=== PATIENT | male | born 1980 | race Caucasian/White ===

== ENCOUNTER 2024-03-13 13:58 | Inpatient (IN) | payer BC, SELFPAY ==
[2024-03-13 08:02] VITALS: BP 169/99
[2024-03-13 08:58] VITALS: BMI 36.8
[2024-03-13] MEDS: NSS 1000 IV (09:19)
--- NOTE | 2024-03-13 09:23 | ED.GENMED ---
History of Present Illness
General
Chief Complaint: Male Genito-Urinary Symptoms
Source: patient
Exam Limitations: none
Time Seen by Provider: 03/13/24 08:55
Nursing documentation reviewed up to this point in time: agreed with
Travel History
Have you had any contact with someone who has COVID-19?: No
Do you have any symptoms of coronavirus? Fever > 100 degrees, chills, cough, shortness of breath, sore throat, loss of taste or smell, muscle aches, or headache?: No
History of Present Illness
History of Present Illness:
43-year-old male 8 days post v[address]ctomy by Dr. Archer has had increasing swelling and pain of the scrotum since. He states his temperature max was 100.12 days ago. He saw Dr. Archer 4 days ago and was told he had a hematoma. Symptoms worsened and
two days ago started on Levaquin 500 milligrams daily for 10 days. Denies n/v, denies abdominal pain, denies trouble urinating or moving bowels.
Past History
Past History
ED Past Medical History: None
ED Past Surgical History: Orthopedic, Tonsilectomy and Urological (vasectomy 03/05/24)
Social History
Tobacco: Non-smoker
Alcohol: Occasional
Personal:
Living: with family
Employment: Employed
Review of Systems
Review of Systems
Allergies reviewed?: Yes
All Other Systems: ROS reviewed and negative except as documented in HPI and ROS
Constitutional: Reports fever (Temp 101.o 2 d ago, none since)
ABD/GI: Denies abdominal pain, nausea or vomiting
: Reports other (swollen, tender scrotal area R > L); Denies dysuria, frequency, flank pain, difficulty voiding, urgency or bleeding
Phy Exam
Physical Exam
Physical Exam:
GENERAL: No acute distress. A&Ox3.
CONSTITUTIONAL: Afebrile.
RESPIRATORY: Regular respirations, nonlabored, lungs clear.
CARDIOVASCULAR: Regular rate and rhythm, no murmurs, no rubs.
GI: Soft, nontender, normal BS
: Swollen, tender scrotum R>L, palpable firm area R upper scrotum, brawny reddish area, not bright red
MUSCULOSKELETAL: Moves with ease. Well perfused.
SKIN: Warm, dry, pink
PSYCH: Normal mood and affect. Well kept, interactive and appropriate
NEUROLOGIC: Awake, alert and oriented. No focal neurological deficits
Course
Orders/Labs/Results
Orders:
Orders
03/13/24 Breakfast
Regular
At Your Request: Full Participation
03/13/24 09:12
CT Pelvis With Iv Contrast Urgent
Reason For Exam: scrotal swelling, pain, redness 8 d post vasectomy
03/13/24 09:13
0.9% Sodium Chloride 1000 ml [Nss] 1,000 ml IV BOLUS
03/13/24 09:18
Complete Blood Count/With Diff Urgent
Comprehensive Metabolic Panel Urgent
03/13/24 09:55
US Scrotum Urgent
Comment:
Reason For Exam: swelling, pain 8 days post vasectomy
03/13/24 11:49
Piperacillin/Tazo 3.375 Gram [Zosyn] 3.375 gram in 50 ml IV NOW
03/13/24 12:06
Ketorolac [Toradol] 15 mg IV NOW STA
03/13/24 12:15
Vancomycin [Vancocin] 2,000 mg 0.9% Sodium Chloride 500 ml [Nss] 500 ml IV NOW
03/13/24 13:07
UROLOGY CONSULT Routine
Consulting Provider: Michael Noland
Was physician already notified: Yes
03/13/24 13:24
Admit/Transfer Patient As Directed
Co-Sign Provider:
Level of Care: Inpatient admission
Assign to:: Telemetry
Physician / Group: dayanna
Diagnosis: cellulitis
Reason for Telemetry: Arrhythmia
Date to Stop Telemetry: 03/16/24
Time to Stop Telemetry: 11:00
Reason for Hospitalization: cellulitis
Expected length of stay greater than two midnights?: Yes
ELOS- Estimated Length of Stay in days: 3
I certify the patient meets the requirements for IP care: Yes
03/13/24 13:25
Code Status As Directed
Resuscitation Status: Full Code
03/13/24 13:32
Urinalysis Reflex To Culture Routine
03/13/24 15:06
Acetaminophen [Tylenol] 650 mg PO Q4HPRN PRN
Hydrocodone 5/APAP 325 [[place] 5/325] 1 tablet PO TIDPRN PRN
03/13/24 15:06
Activity As Directed
Activity Level: Out of Bed-Early Mobility
Intake/ Output As Directed
Frequency: Per unit guidelines
Pneumatic Compression Sleeves As Directed
Type: Thigh high
Vital Signs As Directed
Frequency: Per unit guidelines
DX Deep Vein Thrombosis Video Routine
03/13/24 15:49
Blood Culture Q30M
[facility] Source: Blood/Venous
Specimen Description:
03/13/24 15:52
Blood Culture Q30M
[facility] Source: Blood/Venous
Specimen Description:
03/13/24 18:00
Piperacillin/Tazo 3.375 Gram [Zosyn] 3.375 gram in 50 ml IV Q6H
03/14/24 06:00
Basic Metabolic Panel IN AM
Complete Blood Count/No Diff IN AM
03/15/24 06:00
Basic Metabolic Panel IN AM
Complete Blood Count/No Diff IN AM
03/16/24 06:00
Basic Metabolic Panel IN AM
Complete Blood Count/No Diff IN AM
03/16/24 11:00
DC Protocol for Telemetry ONCE
03/17/24 06:00
Basic Metabolic Panel IN AM
Complete Blood Count/No Diff IN AM
03/18/24 06:00
Basic Metabolic Panel IN AM
Complete Blood Count/No Diff IN AM
Abnormal Lab Results
03/13/24
09:18
WBC 11.0 H 10^3/uL
(4.8-10.8)
RBC 4.28 L 10^6/uL
(4.70-6.10)
Hct 37.8 L %
(39.0-52.0)
Absolute Neuts (auto) 8.1 H 10^3/uL
(1.4-6.5)
Absolute Monos (auto) 1.1 H 10^3/uL
(0.1-0.6)
Lymphocytes % 14.0 L %
(20.5-51.1)
Monocytes % 10.0 H %
(1.7-9.3)
Glucose 102 H mg/dl
(70-99)
ALT 51 H U/L
(0-50)
03/13/24 09:18
03/13/24 09:18
Vital Signs
Initial and Last Documented VS:
Initial Vital Signs
Temp Pulse Resp BP Pulse Ox
98.7 F 108 16 169/99 98
03/13/24 08:02 03/13/24 08:02 03/13/24 08:02 03/13/24 08:02 03/13/24 08:02
Last Documented Vital Signs
Temp Pulse Resp BP Pulse Ox
98.3 F 85 16 151/86 98
03/13/24 15:13 03/13/24 15:13 03/13/24 15:13 03/13/24 15:13 03/13/24 15:13
MDM/Problems Addressed
Differential Diagnosis Includes:
hematoma, abscess, cellulitis, Teagan's gangrene
MDM/Problems Addressed:
43-year-old male 8 days post vasectomy by Dr. Archer has had increasing swelling and pain of the scrotum since. He states his temperature max was 100.12 days ago. He saw Dr. Archer 4 days ago and was told he had a hematoma. Symptoms worsened and
two days ago started on Levaquin 500 milligrams daily for 10 days. Denies n/v, denies abdominal pain, denies trouble urinating or moving bowels.
Afebrile, NAD
No sign of gangrene
11:30 a.m.
CBC unremarkable
CMP normal
US scrotum: Radiology report read: IMPRESSION:
1. Diffuse scrotal wall edema may reflect cellulitis. No loculated fluid collections.
2. Complex fluid in the right inguinal canal likely reflects combination of blood products and inflammatory soft tissue thickening/vasitis, likely postoperative.
Consulted Urology Dr. Noland who requests admit to Hospitalist, he is willing to take on his service
Hospitalist notified of admission
*Critical Care Note
Total Time (30-74mins, 75-104mins- exclusive of procedures): Not Applicable
ED Attending Note
-
Portions of this chart may have been created with voice recognition software.� Occasional wrong word or��sound alike� substitutions may have occurred due to the inherent limitations of voice recognition software.
Discharge Plan
Departure
Patient Disposition: Admit
Date of Disposition: 03/13/24
Time of Disposition: 13:04
Admit to: Med/Surg
Presentation/result/management discussed w/ accepting MD/DO: Hospitalist
Condition: Fair
Discharge Problem:
Cellulitis of scrotum
Interventions
Interventions:
*Risk Screen - Suicide Last Done: 03/13/24 08:02
*General Assessment Last Done: 03/13/24 08:02
*Neglect/Abuse Screening Last Done: 03/13/24 08:02
ED- Fall Risk Assessment Last Done: 03/13/24 08:59
*ED COVID-19 Vaccine History Last Done: 03/13/24 08:58
*Nursing Disposition Last Done: 03/13/24 14:50
ED-Male Genitourinary Assessment Last Done: 03/13/24 08:59
Discharge Date and Time
Discharge Date/Time: 03/13/24 14:53
[2024-03-13 09:41] LABS: % Basophils 0.2 % (0-2); % Eosinophils 1.3 % (0-6); % Immature Granulocytes 0.4 % (0-0.5); % Neutrophils 74.1 % (42.2-75.2); Absolute Eosinophils 0.1 10^3/uL (0-0.7); Absolute Lymphocytes 1.5 10^3/uL (1.2-3.4); Absolute Monocytes 1.1 10^3/uL (0.1-0.6); Absolute Neutrophils 8.1 10^3/uL (1.4-6.5); Hematocrit 37.8 % (39.0-52.0); Mean Corp Hgb Conc. 34.4 g/dL (33.0-37.0); Mean Corpuscular Hgb 30.4 pg (27.0-31.0); Mean Corpuscular Volume 88.3 fL (80.0-94.0); Mean Platelet Volume 9.1 fL (7.4-10.4); Nucleated Red Blood Cells % 0 % (-); Platelet Count 258 10^3/uL (130-400); Red Blood Cell Count 4.28 10^6/uL (4.70-6.10); Red Cell Dist. Width 12.5 % (11.5-14.5)
[2024-03-13 09:48] LABS: ALT (SGPT) 51 U/L (0-50); AST (SGOT) 37 U/L (17-59); Alkaline Phosphatase 45 U/L (38-126); Blood Urea Nitrogen 13 mg/dl (9-20); Calcium 9.1 mg/dl (8.4-10.2); Carbon Dioxide 26 mmol/L (22-30); Chloride 106 mmol/L (98-107); Estimated Creatinine Clearance > 125 ml/min; Glucose 102 mg/dl (70-99); Potassium 4.3 mmol/L (3.5-5.1); Sodium 141 mmol/L (135-145); Total Bilirubin 0.7 mg/dl (0.2-1.3); eGFR > 60.00
[2024-03-13] MEDS: ZOSYN 50 IV ×3 (12:04→23:09)
[2024-03-13] MEDS: TORADOL 15 MG IV (12:11)
[2024-03-13] MEDS: VANCOCIN 540 MG IV (12:41)
--- NOTE | 2024-03-13 13:02 | HPS.HSE ---
Family Physician
-
Family Physician: Saeed Reynoso MD
Chief Complaint
-
Swollen, red scrotum
History of Present Illness
43-year-old male 8 days post vasectomy by Dr. Archer has had increasing swelling and pain of the scrotum since. Patient underwent mastectomy on last Friday. He was evaluated by urology on Friday, and he was told he has hematoma. he states his
temperature max was 100.1 on ., Patient was prescribed Levaquin 500 milligrams daily for 10 days on . Denies n/v, denies abdominal pain, denies trouble urinating or moving bowels. Patient denied headache, dizziness, syncopal
episode. Patient denied chest pain, short of breath.
Ultrasound and CT with cellulitis. Patient initiated on IV Vanco and Zosyn. Admitting for further management
Medical History
Past Medical History
Past Medical History: Reports None
Past Surgical History: Reports None
Additional Past Surgical History:
Tonsillectomy
Vasectomy
Social History
Tobacco: Vaping
Alcohol: Occasional
Drug: None
Living: With Family
Employment: Employed
Family History
Family History: Not pertinent
Allergies / Home Medications
Allergies reflects when Allergies were last updated in [facility].
Home Medications with original date entered in [facility]
Allergy/Medication List:
Allergies
Allergy/AdvReac Type Severity Reaction Status Date / Time
No Known Allergies Allergy Verified 03/13/24 08:01
Home Medications
hydrocodone 5 mg-acetaminophen 325 mg tablet 1 tab PO TIDPRN PRN severe pain 03/13/24
ibuprofen 200 mg tablet (Advil) 200 mg PO Q6HPRN PRN mild pain 03/13/24
levofloxacin 500 mg tablet 500 mg PO DAILY 03/13/24
Review of Systems
-
Constitutional: Reports No Symptoms
EENT: Reports No Symptoms
Respiratory: Reports No Symptoms
Cardiac: Reports No Symptoms
Abdomen/GI: Reports No Symptoms
: Reports No Symptoms
Musculoskeletal: Reports No Symptoms
Skin: Reports Other (Right, swollen scrotum)
Neurological: Reports No Symptoms
Endocrine: Reports No Symptoms
Hematologic/Lymphatic: Reports No Symptoms
Psych: Reports No Symptoms
Physical Exam
Vital Signs
Vital Signs
Temp Pulse Resp BP Pulse Ox
98.7 F 108 16 169/99 98
03/13/24 08:02 03/13/24 08:02 03/13/24 08:02 03/13/24 08:02 03/13/24 08:02
Physical Exam
General: Well Developed, Well Nourished and No Apparent Distress
HEENT: NormoCephalic, Moist mucous membranes and Atraumatic
Respiratory: Clear
Cardiac: S1/S2 and Regular Rhythm; No Murmur or Rub
GI: Soft, Non Tender, Non Distended and Normal Bowel Sounds; No Organomegaly
Rectal: Deferred by Provider
Genito-urinary: Other (Scrotum red swollen, blue.)
Musculoskeletal: No Clubbing, No Cyanosis and No Edema
Skin: No Rash
Neuro: Nonfocal/grossly intact
Laboratory Results
-
03/13/24 09:18
03/13/24 09:18
Laboratory Results
Total Bilirubin 0.7 mg/dl (0.2-1.3) 03/13/24 09:18
AST 37 U/L (17-59) 03/13/24 09:18
ALT 51 U/L (0-50) H 03/13/24 09:18
Alkaline Phosphatase 45 U/L (38-126) 03/13/24 09:18
Data Reviewed
-
Diagnostic Radiology: Report Reviewed by me
CT Scan: Report Reviewed by me
Lab Data: Labs Reviewed by me
Impression/Plan
-
# Sepsis cellulitis of scrotum s/p mastectomy
-Failed oral antibiotics
-WBC 11.0, tachycardia
-Scrotal ultrasound with impression of Diffuse scrotal wall edema may reflect cellulitis. No loculated fluid collections. Complex fluid in the right inguinal canal likely reflects combination of blood products and inflammatory soft tissue
thickening/vasitis, likely postoperative.
-Pelvis CT with impression of most in keeping with scrotal wall cellulitis and right inguinal canal postoperative edema/fluid. No convincing evidence for Teagan gangrene.
-IV Vanco and Zosyn continued
-Tylenol as needed for fever
-Hydrocodone as needed for pain
# DVT prophylaxis
-scd
CODE STATUS
-Full code
[2024-03-13 15:13] VITALS: BP 151/86
[2024-03-13 15:14] VITALS: BMI 36.7
--- NOTE | 2024-03-13 15:45 | PHA.VAN.IN ---
Assessment
- Assessment
Renal Function: Appears similar to baseline
AUC Dosing Plan
- Dosing Variables
Dosing Weight (kg): 122
Dosing CrCl (ml/min): 125
Vd coefficient (L/kg): 0.6
- Empiric Dosing
Initial / Loading Dose: 2000mg - 03/13 12:41 - give additional 500mg x1 tonight to maintain levels
Maintenance Regimen: Vanc 1750mg Q12H starting 03/14 06
Estimated AUC (mcg*h/mL): 478
Estimated Peak (mcg*h/mL): 32.9
Estimated Trough (mcg/ml): 10.6
Estimated Half Life (H): 6.4
- Monitoring
No levels ordered at this time: consider levels in next few days
Pharmacokinetics Vancomycin I
- -
Patient Age: 43
Patient Sex: Male
Vancomycin Day #: 1
Indication: Skin And Soft Tissue
Requesting Provider: Akilah Christianson
Pertinent Antimicrobial Allergies:
NKDA
Height / Weight:
Height 6 ft
Actual Weight 122.612 kg
Pertinent Past Medical History: BMI ~37
- Vital Signs / Lab Results
Temp Pulse Resp BP Pulse Ox
98.3 F 85 16 151/86 98
03/13/24 15:13 03/13/24 15:13 03/13/24 15:13 03/13/24 15:13 03/13/24 15:13
Lab Results - Hematology
03/13/24
09:18
WBC 11.0 H
Lab Results - Chemistry
03/13/24
09:18
BUN 13
Creatinine 0.8
Estimated Creat Clear > 125
Albumin 4.0
[2024-03-13] MEDS: NORCO 5/325 1 TABLET PO ×2 (17:26→23:09)
[2024-03-13 19:44] VITALS: BP 146/81
--- NOTE | 2024-03-13 19:44 | W.PN.UPDATE ---
Update Note
Progress Note Update
This note serves as an addendum to the H&P by MARIAH Malik, on March 13, 2024.
43-year-old male 8 days post vasectomy at [facility] has had increasing swelling and pain of the scrotum since. Patient underwent vasectomy 8 days ago. He was evaluated by urology 4 days ago, and he was told he has a hematoma. He stated his
temperature max was 100.1 F two days ago, he was then prescribed Levaquin 500 milligrams daily for 10 days on . He denied nausea, vomiting, abdominal pain, and denied trouble urinating or moving bowels.
Ultrasound and CT imaging suggested cellulitis. Patient initiated on antibiotics: IV Vancomycin and Zosyn.
Vital Signs
Afebrile
HR, RR okay
BP stable
Saturating oxygen well on room air
Physical Exam
General: Well Developed, Well Nourished and No Apparent Distress
HEENT: Normocephalic, Moist mucous membranes
Respiratory: Clear to Auscultation Bilaterally
Cardiac: S1/S2 and Regular Rhythm
GI: Soft, Non Tender, Non Distended and Normal Bowel Sounds
Genito-urinary: Other (Scrotum swollen, tender and erythematous)
Musculoskeletal: No Cyanosis and No Edema
Skin: Warm. Dry.
Neuro: AAOx3. Nonfocal/grossly intact
Assessment/Plan
#Sepsis cellulitis of scrotum s/p mastectomy
#Diffuse Scrotal Edema
#Right inguinal canal postoperative edema/fluid
-Oral antibiotics outpatient did not work for the patient
-No evidence of Teagan's Gangrenee
-Continue IV Vanco and Zosyn
-Tylenol as needed for fever
-Hydrocodone as needed for pain
-Urology consulted, recommendations appreciated
#DVT prophylaxis
-SCDs and Lovenox
CODE STATUS
-Full code
[2024-03-13] MEDS: LOVENOX SC ×2 (20:55→21:06)
[2024-03-13] MEDS: VANCOCIN HCL 500 MG 100 IV (21:00)
[2024-03-14 03:55] VITALS: BP 143/100
[2024-03-14] MEDS: VANCOCIN 535 MG IV ×2 (05:36→18:01)
[2024-03-14] MEDS: ZOSYN 50 IV ×4 (05:36→23:27)
[2024-03-14] MEDS: NORCO 5/325 1 TABLET PO ×4 (06:06→23:15)
[2024-03-14 06:12] LABS: Hematocrit 35.5 % (39.0-52.0); Hemoglobin 12.3 g/dL (13.0-18.0); Mean Corp Hgb Conc. 34.6 g/dL (33.0-37.0); Mean Corpuscular Hgb 30.5 pg (27.0-31.0); Mean Corpuscular Volume 88.1 fL (80.0-94.0); Mean Platelet Volume 9.1 fL (7.4-10.4); Platelet Count 246 10^3/uL (130-400); Red Blood Cell Count 4.03 10^6/uL (4.70-6.10); Red Cell Dist. Width 12.5 % (11.5-14.5); White Blood Cell Count 9.2 10^3/uL (4.8-10.8)
[2024-03-14 06:33] LABS: Blood Urea Nitrogen 13 mg/dl (9-20); Calcium 8.6 mg/dl (8.4-10.2); Carbon Dioxide 25 mmol/L (22-30); Chloride 107 mmol/L (98-107); Estimated Creatinine Clearance > 125 ml/min; Glucose 101 mg/dl (70-99); Potassium 4.3 mmol/L (3.5-5.1); Sodium 142 mmol/L (135-145); eGFR > 60.00
[2024-03-14 07:30] VITALS: BP 129/90
--- NOTE | 2024-03-14 09:28 | PHA.VAN.FU ---
Vancomycin Assessment / Plan
- Assessment
Renal Function: Stable
WBC's are: Trending Down
In the past 24 hrs, patient has been: Afebrile
Concomitant Antimicrobials: Piperacillin-tazobactam
- Dosing Plan
Continue: Vanc 1750mg IV q12H
- Monitoring Plan
No level(s) ordered at this time: Consider levels after 03/15 1800 dose
- Follow Up
Pharmacy will continue to follow.
Vancomycin Follow UP
- -
Patient Age: 43
Patient Sex: Male
Vancomycin Day #: 2
Indication: Skin And Soft Tissue
Requesting Provider: Akilah Christianson
Pertinent Antimicrobial Allergies:
NKDA
Height / Weight:
Height 6 ft
Actual Weight 122.612 kg
Pertinent Past Medical History: BMI ~37
- Vital Signs / Lab Results
Temp Pulse Resp BP Pulse Ox
98.3 F 78 16 129/90 95
03/14/24 07:30 03/14/24 07:30 03/14/24 07:30 03/14/24 07:30 03/14/24 07:30
Lab Results - Hematology
03/13/24 03/14/24
09:18 05:36
WBC 11.0 H 9.2
Lab Results - Chemistry
03/13/24 03/14/24
09:18 05:36
BUN 13 13
Creatinine 0.8 0.8
Estimated Creat Clear > 125 > 125
Albumin 4.0
[2024-03-14 09:34] LABS: Urine Albumin Negative (Neg - Trace); Urine Bilirubin Negative (Negative); Urine Character Clear (Clear); Urine Color Yellow; Urine Glucose Negative (Negative); Urine Ketone Negative (Negative); Urine Leukocyte Negative (Negative); Urine Nitrite Negative (Negative); Urine Occult Blood Negative (Negative); Urine Urobilinogen 1+ (Neg - 1+)
[2024-03-14 11:27] VITALS: BP 146/93
--- NOTE | 2024-03-14 11:51 | W.PN.URO.CBU ---
Today's Communication / Plan
-
Continue ice/elevation/antibiotics
Anticipate discharge home in next 24-48 hours
Assessment / Plan
-
Right testis/spermatic cord hematoma s/p vasectomy 03/07/24
Scrotal pain
Diagnosis
-
Date of Service: March 14, 2024
-
Patient Diagnosis:
Right scrotal hematoma s/p vasectomy 03/07/24
Scrotal edema w/o evidence of cellulitis by exam or imaging studies
Scrotal pain
Low grade fever 03/13/24 despite regular intake of ibuprofen 800mg QID
Subjective
-
No voiding dysfunction
No chills
Decreased pain
Objective
-
Vital Signs
Temp Pulse Resp BP Pulse Ox
98.1 F 78 16 146/93 96
03/14/24 11:27 03/14/24 11:27 03/14/24 11:27 03/14/24 11:27 03/14/24 11:27
Intake and Output
03/13/24 03/14/24 03/15/24
06:59 06:59 06:59
Intake Total 2395 / 2395
Balance 2395 / 2395
Intake:
Oral fluids 920 / 920
IV piggybacks 1475 / 1475
Other:
Number of approximated MODERATE 2
amounts of urine
Laboratory Results
03/14/24 05:36
03/14/24 05:36
Review of Systems
-
Constitutional: Fatigue
Respiratory: No Symptoms
Cardiac: No Symptoms
Abdomen/GI: No Symptoms
: No Symptoms
Neurological: No Symptoms
Physical Exam
-
General - well nourished, no acute distress
Abdomen - soft, non-tender
Genitalia - generalized scrotal edema w/o cellulitis, crepitus, abscess, drainage. Tender right testis and spermatic cord
Counseling
-
Continue IV antibiotics
Discussed with Hospitalist
[2024-03-14 15:07] VITALS: BP 136/92
--- NOTE | 2024-03-14 16:08 | W.PN.HOSP.TC ---
Addendum entered and electronically signed by Shaheen Kearns MD 03/14/24 21:28:
CORRECTION BELOW:
Assessment/Plan
#Suspected cellulitis of scrotum status post bilateral scrotal vasectomy
#Diffuse Scrotal Edema
#Right inguinal canal postoperative edema/fluid
-Oral antibiotics outpatient did not work for the patient
-No evidence of Teagan's Gangrene
-Continue IV Vanco and Zosyn
-Tylenol as needed for fever
-Hydrocodone as needed for pain
-Urology consulted, recommendations appreciated
-Continue ice/elevation/antibiotics
#DVT prophylaxis
-SCDs and Lovenox
CODE STATUS
-Full code
Original Note:
Today's Communication/Plan
-
Continue ice/elevation/antibiotics
Appreciate urology
Assessment / Plan
Assessment / Plan
Physical Exam
General: Well Developed, Well Nourished and No Apparent Distress
HEENT: Normocephalic, Moist mucous membranes
Respiratory: Clear to Auscultation Bilaterally
Cardiac: S1/S2 and Regular Rhythm
GI: Soft, Non Tender, Non Distended and Normal Bowel Sounds
Genito-urinary: Other (Scrotum swollen, tender and erythematous)
Musculoskeletal: No Cyanosis and No Edema
Skin: Warm. Dry.
Neuro: AAOx3. Nonfocal/grossly intact
Assessment/Plan
#Suspected cellulitis of scrotum status post mastectomy
#Diffuse Scrotal Edema
#Right inguinal canal postoperative edema/fluid
-Oral antibiotics outpatient did not work for the patient
-No evidence of Teagan's Gangrene
-Continue IV Vanco and Zosyn
-Tylenol as needed for fever
-Hydrocodone as needed for pain
-Urology consulted, recommendations appreciated
-Continue ice/elevation/antibiotics
#DVT prophylaxis
-SCDs and Lovenox
CODE STATUS
-Full code
Anticipated Discharge: Within 24 hours
Subjective/Interval History
-
Date of Service: March 14, 2024
Patient was seen and examined. He reported that the redness of his scrotum has improved.
Objective Data
-
Labs:
Laboratory Results
03/14/24
05:36
WBC 9.2
Hgb 12.3 L
Hct 35.5 L
Plt Count 246
Sodium 142
Potassium 4.3
Chloride 107
Carbon Dioxide 25
BUN 13
Creatinine 0.8
Glucose 101 H
Calcium 8.6
Vital Signs:
Vital Signs
Temp Pulse Resp BP Pulse Ox
98.4 F 76 16 136/92 96
03/14/24 15:07 03/14/24 15:07 03/14/24 15:07 03/14/24 15:07 03/14/24 15:07
I&O
03/13/24 03/14/24 03/15/24
06:59 06:59 06:59
Intake Total 2395 / 2395
Balance 2395 / 2395
[2024-03-14] MEDS: LOVENOX 40 MG SC (18:00)
[2024-03-14 19:22] VITALS: BP 142/93
[2024-03-14 22:29] VITALS: BP 143/91
[2024-03-14] MEDS: FLUSH (NSS) 2 FLUSH IV (23:28)
[2024-03-15 03:06] VITALS: BP 125/80
[2024-03-15] MEDS: ZOSYN 50 IV ×2 (06:21→12:12)
[2024-03-15] MEDS: FLUSH (NSS) 2 FLUSH IV (06:21)
[2024-03-15] MEDS: NORCO 5/325 1 TABLET PO ×2 (06:37→12:54)
[2024-03-15 07:00] VITALS: BP 142/93
[2024-03-15] MEDS: VANCOCIN 535 MG IV (07:14)
[2024-03-15 08:15] LABS: % Basophils 0.2 % (0-2); % Immature Granulocytes 0.4 % (0-0.5); % Lymphocytes 16.9 % (20.5-51.1); % Monocytes 9.7 % (1.7-9.3); % Neutrophils 68.8 % (42.2-75.2); Absolute Eosinophils 0.4 10^3/uL (0-0.7); Absolute Lymphocytes 1.6 10^3/uL (1.2-3.4); Absolute Monocytes 0.9 10^3/uL (0.1-0.6); Absolute Neutrophils 6.6 10^3/uL (1.4-6.5); Hematocrit 37.4 % (39.0-52.0); Hemoglobin 12.8 g/dL (13.0-18.0); Mean Corp Hgb Conc. 34.2 g/dL (33.0-37.0); Mean Corpuscular Volume 87.8 fL (80.0-94.0); Mean Platelet Volume 9.2 fL (7.4-10.4); Nucleated Red Blood Cells % 0 % (-); Platelet Count 303 10^3/uL (130-400); Red Blood Cell Count 4.26 10^6/uL (4.70-6.10); Red Cell Dist. Width 12.1 % (11.5-14.5); White Blood Cell Count 9.6 10^3/uL (4.8-10.8)
[2024-03-15 08:47] LABS: Blood Urea Nitrogen 12 mg/dl (9-20); Carbon Dioxide 23 mmol/L (22-30); Chloride 104 mmol/L (98-107); Estimated Creatinine Clearance > 125 ml/min; Glucose 93 mg/dl (70-99); Potassium 4.3 mmol/L (3.5-5.1); Sodium 137 mmol/L (135-145); eGFR > 60.00
--- NOTE | 2024-03-15 09:03 | PHA.VAN.FU ---
Vancomycin Assessment / Plan
- Assessment
Renal Function: Stable
WBC's are: WNL
In the past 24 hrs, patient has been: Afebrile
Concomitant Antimicrobials: piperacillin/tazobactam
- Dosing Plan
Continue: Vanc 1750mg Q12H
- Monitoring Plan
No level(s) ordered at this time: hold off on levels given possible discharge on PO abx
- Follow Up
Pharmacy will continue to follow.
Vancomycin Follow UP
- -
Patient Age: 43
Patient Sex: Male
Vancomycin Day #: 3
Indication: Skin And Soft Tissue
Requesting Provider: Akilah Christianson
Pertinent Antimicrobial Allergies:
NKDA
Height / Weight:
Height 6 ft
Actual Weight 122.612 kg
Pertinent Past Medical History: BMI ~37
- Vital Signs / Lab Results
Temp Pulse Resp BP Pulse Ox
98.2 F 77 16 142/93 93
03/15/24 07:00 03/15/24 07:00 03/15/24 07:00 03/15/24 07:00 03/15/24 07:00
Lab Results - Hematology
03/13/24 03/14/24 03/15/24
09:18 05:36 07:22
WBC 11.0 H 9.2 9.6
Lab Results - Chemistry
03/13/24 03/14/24 03/15/24
09:18 05:36 07:22
BUN 13 13 12
Creatinine 0.8 0.8 0.7
Estimated Creat Clear > 125 > 125 > 125
Albumin 4.0
Lab Results - Urine
03/14/24
09:26
Urine Nitrite (Reflex) Negative
Leukocyte Esterase Rfl Negative
Microbiology Results
03/13/24 15:49 Blood Culture - Preliminary
Blood/Venous No Growth in 24 hours- Final report to follow
03/13/24 15:52 Blood Culture - Preliminary
Blood/Venous No Growth in 24 hours- Final report to follow
--- NOTE | 2024-03-15 10:00 | W.PN.HOSP.TC ---
Today's Communication/Plan
-
dc now after receives next dose of IV Zosyn
Assessment / Plan
Assessment / Plan
Assessment/Plan
#Suspected cellulitis of scrotum status post vasectomy
Urology believes this was an inflamed hematoma
#Diffuse Scrotal Edema
#Right inguinal canal postoperative edema/fluid
-Oral antibiotics outpatient did not work for the patient
-No evidence of Teagan's Gangrene
-Change IV Vanco and Zosyn to oral Cefdinir (abx as per Urology)
-Tylenol as needed for fever
-Hydrocodone as needed for pain
-Urology consulted, recommendations appreciated
Cleared by Urology for DC, will see Dr. Archer in 3-4 days
-Continue ice/elevation/antibiotics
#DVT prophylaxis
-SCDs and Lovenox
CODE STATUS
-Full code
dc now
see dictated note
Anticipated Discharge: Today
Subjective/Interval History
-
Date of Service: March 15, 2024
Feels better, anxiously awaiting dc
Objective Data
-
Labs:
Laboratory Results
03/15/24
07:22
WBC 9.6
Hgb 12.8 L
Hct 37.4 L
Plt Count 303 D
Sodium 137
Potassium 4.3
Chloride 104
Carbon Dioxide 23
BUN 12
Creatinine 0.7
Glucose 93
Calcium 9.0
Vital Signs:
Vital Signs
Temp Pulse Resp BP Pulse Ox
98.2 F 77 16 142/93 93
03/15/24 07:00 03/15/24 07:00 03/15/24 07:00 03/15/24 07:00 03/15/24 07:00
I&O
03/14/24 03/15/24 03/16/24
06:59 06:59 06:59
Intake Total 2394 / 2394
Balance 2394 / 2394
Review of Systems
-
History Source: Patient and Family (, RN at bedside)
Constitutional: Denies Fever
EENT: Reports No Symptoms Reported
Respiratory: Reports No Symptoms
Cardiac: Reports No Symptoms
Abdomen/GI: Reports No Symptoms
Genitourinary: Reports Other (scrotal pain and tenderness markedly reduced)
Musculoskeletal: Reports No Symptoms
Neuro: Reports No Symptoms
Physical Exam
-
General: Well Developed, Well Nourished and No Apparent Distress
HEENT: Normocephalic, Atraumatic and Moist Mucous Membranes
Respiratory: Clear to Auscultation; Negative Wheezes, Rales or Rhonchi
Cardiac: Regular Rhythm and S1/S2
GI: Soft, Nontender and Nondistended
Genito-urinary: Other (scrotal area tenderness markedly diminished, area not red, not warm to touch)
Musculoskeletal: No Clubbing, No Cyanosis and No Edema
--- NOTE | 2024-03-15 10:22 | W.PN.URO.CBU ---
Today's Communication / Plan
-
Cleared for discharge from standpoint
Advise ice, NSAIDS, supporter and 10 days of cefdinir
Assessment / Plan
-
Right testis/spermatic cord hematoma s/p vasectomy 03/07/24
Scrotal pain
Diagnosis
-
Date of Service: March 15, 2024
-
Patient Diagnosis:
Right scrotal hematoma s/p vasectomy 03/07/24
Scrotal edema w/o evidence of cellulitis by exam or imaging studies: continued improvement
Scrotal pain: much diminished
Low grade fever 03/13/24 despite regular intake of ibuprofen 800mg QID
Subjective
-
Feels better
Much less scrotal discomfort
Objective
-
Vital Signs
Temp Pulse Resp BP Pulse Ox
98.2 F 77 16 142/93 93
03/15/24 07:00 03/15/24 07:00 03/15/24 07:00 03/15/24 07:00 03/15/24 07:00
Intake and Output
03/14/24 03/15/24 03/16/24
06:59 06:59 06:59
Intake Total 2395 / 2395 2690 / 2690
Balance 2395 / 2395 2690 / 2690
Intake:
Oral fluids 920 / 920 1520 / 1520
IV piggybacks 1475 / 1475 1170 / 1170
Other:
Number of approximated MODERATE 2 2
amounts of urine
Laboratory Results
03/15/24 07:22
03/15/24 07:22
Review of Systems
-
Constitutional: No Symptoms
Respiratory: No Symptoms
Cardiac: No Symptoms
Abdomen/GI: No Symptoms
Neurological: No Symptoms
Physical Exam
-
General - well nourished, no acute distress
Abdomen - soft, non-tender
Genitalia - right testis swelling and tenderness diminished, much decreased scrotal edema
Skin - warm & dry with no rash
Counseling
-
Discussed with Dr. Brunson
--- NOTE | 2024-03-15 10:25 | W.DS.TRANS ---
DC Summary - [employer] [facility]
-
Discharge Instructions:
Discharge Diagnosis/Procedures Scrotal Hematoma
Diet Regular
Activity As tolerated
Additional Activity scrotal support
Driving Restrictions Not until seen by your Dr
Bathing Restrictions None
Instructions:
Stand-Alone Forms:
Changes to Home Medications: Yes
Discharge Medications:
DC Medications w/original date entered in [facility]
hydrocodone 5 mg-acetaminophen 325 mg tablet 1 tab PO TIDPRN PRN severe pain 03/13/24
ibuprofen 200 mg tablet (Advil) 200 mg PO Q6HPRN PRN mild pain 03/13/24
cefdinir 300 mg capsule 300 mg PO BID #20 caps 03/15/24
Home Medication Changes
Levaquin stopped and Cefdinir substituted
Pending Results: No
[2024-03-15 11:19] VITALS: BP 135/90
== END 2024-03-15 13:05 | disposition home or self-care (01) | DRG 872 ==
LOC: 3 WEST ACU 13:58
PROVIDERS: Registered Nurse; ADMITTING PHYSICIAN Hospitalist; ATTENDING PHYSICIAN Internal Medicine; CONSULT PHYSICIAN Specialist; EMERGENCY PHYSICIAN Student in an Organized Health Care Education/Training Program; FAMILY PHYSICIAN Family Medicine
DX: A41.9 Sepsis, unspecified organism (principal); N49.1 Inflammatory disorders of spermatic cord, tunica vaginalis and vas deferens; N49.2 Inflammatory disorders of scrotum; S30.22XA Contusion of scrotum and testes, initial encounter; E66.9 Obesity, unspecified; Z68.36 Body mass index [BMI] 36.0-36.9, adult; Z98.52 Vasectomy status; N50.89 Other specified disorders of the male genital organs
CPT/HCPCS: 72193; 76870; 80048; 80053; 81003; 85025; 85027; 87040; 87070; 93976; 96361; 96374; 96375; 99285; Q9967